=== PATIENT | male | born 1970 | race Caucasian/White ===

== ENCOUNTER 2019-08-02 09:07 | Day surgery (SDC) | payer OTHER ==
[~2019-08-02] VITALS: Ht 172.7 cm; Wt 90.3 kg
[2019-08-02] MEDS ORDERED: fentaNYL 0.05 MG/ML VIAL ONE (10:41)
[2019-08-02] MEDS ORDERED: LIDOCAINE 2% 100 MG/5 ML UJET TP ONE (10:42)
[2019-08-02] MEDS ORDERED: fentaNYL 0.05 MG/ML VIAL IVP ONE (12:50)
== END 2019-08-02 12:36 | disposition home or self-care (01) ==
LOC: MOR 09:07 → MMU 09:08 → MOR 12:36
PROVIDERS: ATTEND Internal Medicine Gastroenterology
DX: Z12.11 Encounter for screening for malignant neoplasm of colon (principal); K57.30 Diverticulosis of large intestine without perforation or abscess without bleeding; Z98.1 Arthrodesis status; Z98.890 Other specified postprocedural states; Z79.899 Other long term (current) drug therapy
CPT/HCPCS: 45378; J3010; J7030